=== PATIENT | female | born 1955 | race Caucasian/White ===

== ENCOUNTER 2019-08-16 19:12 | Emergency (ER) | payer BC, OTHER ==
[~2019-08-16] VITALS: Ht 167.7 cm; Wt 100.9 kg
[2019-08-16 19:33] LABS: CLARITY,URINE CLEAR; COLOR,URINE STRAW; GLUCOSE, URINE (UA) NEGATIVE (NEGATIVE); KETONES,URINE NEGATIVE (NEGATIVE); NITRITE,URINE NEGATIVE (NEGATIVE); PROTEIN,URINE NEGATIVE (NEGATIVE)
[2019-08-16 19:34] LABS: BILIRUBIN,URINE NEGATIVE (NEGATIVE); LEUKOCYTE ESTERASE ,URINE NEGATIVE (NEGATIVE)
--- NOTE | 2019-08-16 19:36 | ED GI ---
General Chief Complaint: Abdominal/GI Problems Stated Complaint: ABD PAIN,FEVER Source of Information: Patient Exam Limitations: No Limitations History of Present Illness Date Seen by Provider: Aug 16, 2019 Time Seen by Provider: 19:34 Initial Comments Patient complains lower abdominal pain left greater than right since this morning. It is associated with nausea but no vomiting. She had a normal bowel movement earlier. She has a low-grade temperature. She feels weak and dizzy. No history of abdominal surgeries. Colonoscopy in the past revealed diverticulosis. Allergies and Home Medications Allergies Coded Allergies: Sulfa (Sulfonamide Antibiotics) (Verified Allergy, Severe, Hives, 08/16/19) Home Medications Amoxicillin/Potassium Clav 1 Each Tablet, 1 EACH PO BID Prescribed by: FARHAD RIVERA on 08/16/192110 Patient Home Medication List Home Medication List Reviewed: Yes Review of Systems Review of Systems Constitutional: fever, malaise EENTM: No Symptoms Reported Respiratory: No Symptoms Reported Cardiovascular: No Symptoms Reported Gastrointestinal: Abdominal Pain; Denies Diarrhea; Nausea; Denies Vomiting Genitourinary: No Symptoms Reported Musculoskeletal: no symptoms reported Skin: no symptoms reported Psychiatric/Neurological: No Symptoms Reported All Other Systems Reviewed Negative Unless Noted: Yes Past Ovzdydi-[place]-Fcoita Hx Patient Social History Recent Foreign Travel: No Contact w/Someone Who Travel: No Physical Exam Vital Signs Vital Signs - First Documented 08/16/19 19:16 Temp 38.2 Pulse 101 Resp 18 B/P (MAP) 226/84 (131) Pulse Ox 96 O2 Delivery Room Air Capillary Refill : Height/Weight/BMI Height: '" Weight: lbs. oz. kg; BMI Method: General Appearance: WD/WN, no apparent distress HEENT: PERRL/EOMI, pharynx normal Neck: supple Respiratory: lungs clear, normal breath sounds Cardiovascular: regular rate, rhythm, no edema Gastrointestinal: normal bowel sounds, soft; No guarding, No rebound; tenderness (lower abdominal tenderness left greater than right) Extremities: normal range of motion, non-tender, normal inspection Neurologic/Psychiatric: no motor/sensory deficits, alert Skin: normal color, warm/dry Focused Exam Lactate Level 08/16/19 19:26: Lactic Acid Level 1.22 Lactic Acid Level Laboratory Tests Test 08/16/19 19:26 Lactic Acid Level 1.22 MMOL/L (0.50-2.00) Progress/Results/Core Measures Results/Orders Lab Results Laboratory Tests Test 08/16/19 19:18 08/16/19 19:26 Range/Units Urine Color STRAW Urine Clarity CLEAR Urine pH 6.0 5-9 Urine Specific [place] <=1.005 1.016-1.022 Urine Protein NEGATIVE NEGATIVE Urine Glucose (UA) NEGATIVE NEGATIVE Urine Ketones NEGATIVE NEGATIVE Urine Nitrite NEGATIVE NEGATIVE Urine Bilirubin NEGATIVE NEGATIVE Urine Urobilinogen 0.2 NORMAL MG/DL Urine Leukocyte Esterase NEGATIVE NEGATIVE Urine RBC (Auto) NEGATIVE NEGATIVE Urine RBC NONE /HPF Urine WBC 2-5 /HPF Urine Squamous Epithelial Cells 10-25 H /HPF Urine Crystals NONE /LPF Urine Bacteria TRACE /HPF Urine Casts PRESENT /LPF Urine Granular Casts RARE /LPF Urine Mucus NEGATIVE /LPF Urine Culture Indicated NO White Blood Count 10.9 4.3-11.0 10^3/uL Red Blood Count 4.43 4.35-5.85 10^6/uL Hemoglobin 13.1 11.5-16.0 G/DL Hematocrit 40 35-52 % Mean Corpuscular Volume 89 80-99 FL Mean Corpuscular Hemoglobin 30 25-34 PG Mean Corpuscular Hemoglobin Concent 33 32-36 G/DL Red Cell Distribution Width 12.1 10.0-14.5 % Platelet Count 198 130-400 10^3/uL Mean Platelet Volume 10.0 7.4-10.4 FL Neutrophils (%) (Auto) 72 42-75 % Lymphocytes (%) (Auto) 21 12-44 % Monocytes (%) (Auto) 6 0-12 % Eosinophils (%) (Auto) 1 0-10 % Basophils (%) (Auto) 0 0-10 % Neutrophils # (Auto) 7.9 H 1.8-7.8 X 10^3 Lymphocytes # (Auto) 2.3 1.0-4.0 X 10^3 Monocytes # (Auto) 0.6 0.0-1.0 X 10^3 Eosinophils # (Auto) 0.1 0.0-0.3 10^3/uL Basophils # (Auto) 0.0 0.0-0.1 10^3/uL Sodium Level 141 135-145 MMOL/L Potassium Level 4.2 3.6-5.0 MMOL/L Chloride Level 102 98-107 MMOL/L Carbon Dioxide Level 24 21-32 MMOL/L Anion Gap 15 H 5-14 MMOL/L Blood Urea Nitrogen 17 7-18 MG/DL Creatinine 0.87 0.60-1.30 MG/DL Estimat Glomerular Filtration Rate > 60 BUN/Creatinine Ratio 20 Glucose Level 105 70-105 MG/DL Lactic Acid Level 1.22 0.50-2.00 MMOL/L Calcium Level 9.4 8.5-10.1 MG/DL Corrected Calcium 8.5-10.1 MG/DL Total Bilirubin 0.3 0.1-1.0 MG/DL Aspartate Amino Transf (AST/SGOT) 19 5-34 U/L Alanine Aminotransferase (ALT/SGPT) 18 0-55 U/L Alkaline Phosphatase 88 40-136 U/L Total Protein 7.4 6.4-8.2 GM/DL Albumin 4.3 3.2-4.5 GM/DL Lipase 54 8-78 U/L My Orders Orders - FARHAD RIVERA MD Ua Culture If Indicated (08/16/19 19:18) Cbc With Automated Diff (08/16/19 19:22) Comprehensive Metabolic Panel (08/16/19 19:22) Lactic Acid Analyzer (08/16/19 19:22) Lipase (08/16/19 19:22) Ct Abdomen/Pelvis W (08/16/19 19:29) Iohexol Injection (Omnipaque 350 Mg/Ml 1 (08/16/19 19:45) Received Contrast (Hold Metformin- Contr (08/16/19 19:45) Ns (Ivpb) (Sodium Chloride 0.9% Ivpb Bag (08/16/19 19:45) Sodium Chloride Flush (Catheter Flush Sy (08/16/19 19:45) Ceftriaxone For Iv Use (Rocephin For I (08/16/19 21:15) Metronidazole Tablet (Flagyl Tablet) (08/16/19 21:15) Metronidazole Tablet (Flagyl Tablet) (08/16/19 21:15) Ceftriaxone For Iv Use (Rocephin For I (08/16/19 21:15) Medications Given in ED Current Medications Medications Dose Ordered Sig/Twyla Route Start Time Stop Time Status Last Admin Dose Admin Iohexol 100 ml ONCE ONCE IV 08/16/19 19:45 08/16/19 19:58 DC 08/16/19 20:28 100 ML Sodium Chloride 10 ml NEEDED PRN IV 08/16/19 19:45 08/16/19 20:29 10 ML Sodium Chloride 100 ml ONCE ONCE IV 08/16/19 19:45 08/16/19 19:58 DC 08/16/19 20:28 80 ML Vital Signs/I&O 08/16/19 19:16 Temp 38.2 Pulse 101 Resp 18 B/P (MAP) 226/84 (131) Pulse Ox 96 O2 Delivery Room Air Progress Progress Note : Time: 21:09 Progress Note Feels better after medications. Blood pressure down. CT results discussed with the patient. She was given Rocephin IV and Flagyl by mouth in the emergency department. We will prescribe Augmentin for diverticulitis. Stressed need for follow-up tomorrow or return to the ER if symptoms worsen. Case was discussed with Dr. Koroma. He agrees with plan. He wants to see the patient tomorrow at 2 p.m. Patient was provided with directions and agrees to plan. Departure Impression Primary Impression: Diverticulitis of intestine Disposition: 01 HOME, SELF-CARE Condition: Stable Departure-Patient Inst. Decision time for Depature: 21:10 Patient Instructions: Diverticulitis (DC) Add. Discharge Instructions: Clear liquid diet for the next 24 hours. See your Doctor return to ER tomorrow afternoon if not improved or worse. All discharge instructions reviewed with patient and/or family. Voiced understanding. Scripts Amoxicillin/Potassium Clav (Augmentin 875-125 Tablet) 1 Each Tablet 1 EACH PO BID, #20 TAB 0 Refills Prov: FARHAD RIVERA MD 08/16/19 FARHAD RIVERA MD Aug 16, 2019 19:35
[2019-08-16 19:42] LABS: BACTERIA,URINE TRACE /HPF; GRANULAR CASTS,URINE RARE /LPF
[2019-08-16] MEDS ORDERED: NS 100 ML (IVPB) BAG IV ONE (19:45)
[2019-08-16] MEDS ORDERED: HOLD METFORMIN - RECEIVED CONTRAST 20 ML VIAL IV SCH (19:45)
[2019-08-16] MEDS ORDERED: IOHEXOL 350 MG/ML 100 ML (OMNIPAQUE 350) VIAL IV ONE (19:45)
[2019-08-16] MEDS ORDERED: CATHETER FLUSH 10 ML SYR IV PRN (19:45)
[2019-08-16 19:49] LABS: BASOPHILS % (AUTO) 0 % (0-10); EOSINOPHILS # (AUTO) 0.1 10^3/uL (0.0-0.3); EOSINOPHILS % (AUTO) 1 % (0-10); HEMATOCRIT 40 % (35-52); HEMOGLOBIN 13.1 G/DL (11.5-16.0); LYMPHOCYTES # (AUTO) 2.3 X 10^3 (1.0-4.0); LYMPHOCYTES % (AUTO) 21 % (12-44); MEAN CORPUSCULAR HEMOGLOBIN 30 PG (25-34); MEAN CORPUSCULAR HGB CONC 33 G/DL (32-36); MEAN CORPUSCULAR VOLUME 89 FL (80-99); MONOCYTES # (AUTO) 0.6 X 10^3 (0.0-1.0); MONOCYTES % (AUTO) 6 % (0-12); NEUTROPHILS # (AUTO) 7.9 X 10^3 (1.8-7.8); NEUTROPHILS % (AUTO) 72 % (42-75); PLATELET COUNT 198 10^3/uL (130-400); RED CELL DISTRIBUTION WIDTH 12.1 % (10.0-14.5); WHITE BLOOD COUNT 10.9 10^3/uL (4.3-11.0)
[2019-08-16 20:13] LABS: ALANINE AMINOTRANSFERASE 18 U/L (0-55); ALBUMIN 4.3 GM/DL (3.2-4.5); ALKALINE PHOSPHATASE 88 U/L (40-136); BILIRUBIN,TOTAL 0.3 MG/DL (0.1-1.0); BUN/CREATININE RATIO 20; CALCIUM 9.4 MG/DL (8.5-10.1); CARBON DIOXIDE 24 MMOL/L (21-32); CHLORIDE 102 MMOL/L (98-107); CREATININE SERUM 0.87 MG/DL (0.60-1.30); GFR ESTIMATED > 60; GLUCOSE 105 MG/DL (70-105); LIPASE 54 U/L (8-78); POTASSIUM 4.2 MMOL/L (3.6-5.0); SODIUM 141 MMOL/L (135-145); TOTAL PROTEIN 7.4 GM/DL (6.4-8.2)
--- NOTE | 2019-08-16 20:54 | Diagnostic Imaging Report ---
PROCEDURE: CT abdomen and pelvis with contrast. TECHNIQUE: Multiple contiguous axial images were obtained through the abdomen and pelvis after administration of intravenous contrast. Auto Exposure Controls were utilized during the CT exam to meet ALARA standards for radiation dose reduction. INDICATION: Low abdominal pain. FINDINGS: The lung bases are clear. The liver appears normal. Gallbladder and bile ducts are normal. Pancreas and spleen are normal. The adrenal glands are not enlarged. The kidneys show no evidence of obstruction, calculi or mass. There is normal enhancement of the abdominal organs and vessels following IV contrast. Aorta shows mild atherosclerosis without dissection or aneurysm. Stomach and small bowel are not dilated. Colon shows marked thickening in the proximal sigmoid colon with diverticulitis. There is a small amount of air in the adjacent mesenteric fat. There is a trace of free fluid in the cul-de-sac.. No evidence of loculated abscess. There is surrounding mesenteric edema. The remaining colon appears normal. The appendix is normal. There is no intra-abdominal adenopathy of pathologic size. No bony lesions are demonstrated. IMPRESSION: Findings are consistent with acute diverticulitis of the sigmoid colon without significant complication. There is mesenteric edema with a few tiny droplets of air in the adjacent mesenteric fat at this time. No evidence of abscess. There is a trace of free fluid in the cul-de-sac. Dictated by: Dictated on workstation # [id number]
[2019-08-16] MEDS ORDERED: AMOX-358 PO (21:11)
[2019-08-16] MEDS ORDERED: metroNIDAZOLE 500 MG (FLAGYL) TAB PO ONE ×2 (21:15)
[2019-08-16] MEDS ORDERED: cefTRIAXone FOR IV USE 1,000 MG in WATER (STERILE) FOR INJECTION 10 ML IV ONE ×4 (21:15)
[2019-08-16 21:23] VITALS: BP 149/65
== END 2019-08-16 21:23 | disposition home or self-care (01) ==
LOC: ER FS 19:14
DX: K57.92 Diverticulitis of intestine, part unspecified, without perforation or abscess without bleeding (principal); Z88.2 Allergy status to sulfonamides
CPT/HCPCS: 36415; 74177; 80053; 81000; 83605; 83690; 85025; 96374